=== PATIENT | male | born 1945 | race Caucasian/White ===

== ENCOUNTER 2021-08-10 09:56 | Emergency (ER) | payer OTHER ==
[~2021-08-10] VITALS: Ht 172.7 cm; Wt 79.4 kg
[2021-08-10] MEDS ORDERED: METF500 PO (10:30)
== END 2021-08-10 10:53 | disposition home or self-care (01) ==
LOC: ER 09:56
DX: E11.9 Type 2 diabetes mellitus without complications (principal); Z76.0 Encounter for issue of repeat prescription
CPT/HCPCS: 82947; 99281

== ENCOUNTER 2023-08-07 09:02 | Day surgery (SDC) | payer OTHER ==
[~2023-08-07] VITALS: Ht 172.7 cm; Wt 79.1 kg
[~2023-08-07 09:02] MED LIST: ATOR40TA PO; B-121000 MC3 PO; CALCIUM 500 MG1 EAC2 PO; FERROUS GLUCON324 M7 PO; FINA5 PO; LATANOPROST2.5 M3; METF500 PO; ZESTRIL40 M1 PO
[2023-08-07] MEDS ORDERED: Acerola C500 MG PO (09:48)
[2023-08-07] MEDS ORDERED: VITAMIN D5000 UNIT PO (09:49)
[2023-08-07] MEDS ORDERED: METF500 PO (09:49)
[2023-08-07] MEDS ORDERED: METFORMIN HCL500 MG (09:50)
[2023-08-07] MEDS ORDERED: METF500C PO (09:50)
[2023-08-07 10:36] VITALS: BP 123/60
== END 2023-08-07 10:54 | disposition home or self-care (01) ==
LOC: ORSCSDS 09:02
PROVIDERS: Ophthalmology
PROC: 08RK3JZ Replacement of Left Lens with Synthetic Substitute, Percutaneous Approach (ICD-10-PCS; principal; 2023-08-07 10:30)
DX: E11.36 Type 2 diabetes mellitus with diabetic cataract (principal); H25.12 Age-related nuclear cataract, left eye; I10 Essential (primary) hypertension; F41.9 Anxiety disorder, unspecified; F43.10 Post-traumatic stress disorder, unspecified; Z79.899 Other long term (current) drug therapy
CPT/HCPCS: 82947; J2001; J2250; J3010; J3301; J7040; V2632

== ENCOUNTER 2023-08-14 08:43 | Day surgery (SDC) | payer OTHER ==
[~2023-08-14] VITALS: Ht 172.7 cm; Wt 79.8 kg
[~2023-08-14 08:43] MED LIST changes: +Acerola C500 MG PO; +METF500C PO; +METFORMIN HCL500 MG; +VITAMIN D5000 UNIT PO
--- NOTE | 2023-08-14 09:53 | NUR ---
08/14/23 0953 Shahnaz Britton IN AT 0944 PLEELLA IN AT 0945 CALL LIGHT AT BEDSIDE
[2023-08-14 11:07] VITALS: BP 121/73
== END 2023-08-14 11:23 | disposition home or self-care (01) ==
LOC: ORSCSDS 08:43
PROVIDERS: Ophthalmology
PROC: 08RJ3JZ Replacement of Right Lens with Synthetic Substitute, Percutaneous Approach (ICD-10-PCS; principal; 2023-08-14 10:30)
DX: E11.36 Type 2 diabetes mellitus with diabetic cataract (principal); H25.11 Age-related nuclear cataract, right eye; H52.201 Unspecified astigmatism, right eye; Z96.1 Presence of intraocular lens; I10 Essential (primary) hypertension; E78.5 Hyperlipidemia, unspecified; F41.9 Anxiety disorder, unspecified; F43.10 Post-traumatic stress disorder, unspecified; Z79.899 Other long term (current) drug therapy
CPT/HCPCS: 82947; J2250; J3010; J3301; J7040; V2632